=== PATIENT | male | born 1965 | race Caucasian/White ===

== ENCOUNTER 2024-04-10 12:10 | Emergency (ER) | payer MEDICAID, SELFPAY ==
[2024-04-10 12:11] VITALS: BMI 19.2
[2024-04-10 12:57] VITALS: BP 128/59; PULSE 66; RESP 19; TEMP 36.9; O2SAT 97; BMI 19.4
--- NOTE | 2024-04-10 13:04 | XR_ITS ---
Examination: CT abdomen with intravenous contrast CT pelvis with intravenous contrast 2-D coronal reconstructions 2-D sagittal reconstructions Comparison December 29, 2017 Date and time of exam:April 10, 2024 at 1518 hrs. Indications: Left groin pain and swelling beginning 2 months ago, history appendectomy hernia repair. CTDI: vol (mGy) 5.62 DLP: (mGycm) 267 Technique: Multiple axial sections of the abdomen and pelvis have been obtained. 64 slice high-resolution scanner used. 3 mm axial sections have been obtained, post intravenous injection 100 cc [id number] 2-D sagittal, coronal reconstructions obtained. Low dose protocols were performed. One or more of the following dose reduction techniques were used; automated exposure control, adjustment of the mA and/or KV according to patient size, use of iterative reconstruction technique. Findings: Multiple soft 2 to 3 mm bilateral pulmonary nodules in the lower lung zones Mildly dilated bronchi in the lower lobes No visualized liver or splenic lesion No gallstones No pancreatic mass Heavy abdominal aortic calcification No renal or ureteral calculi No bowel obstruction Appendix is not visualized No diverticulitis Prostate calcifications Transverse prostate dimension 4.1 cm Contracted urinary bladder Small fluid containing left inguinal hernia axial image 178, no bowel present in this hernia defect Moderate disc narrowing L4-L5 Impression: Multiple soft 2 to 3 mm bilateral pulmonary nodules in the lower lung zones, recommend PA lateral chest follow-up No renal or ureteral calculi, no hydronephrosis Appendix not visualized Small fluid containing left inguinal hernia, axial image 178, no bowel present in this hernia defect Given the patient's presentation, consider testicular sonography follow-up
--- NOTE | 2024-04-10 13:05 | PD.EDRME ---
Rapid Medical Screening Exam RME Arrival date/time: 04/10/24 12:10 58-year-old male presents to the emergency department complaining of left groin pain and swelling that is been ongoing for over a month but reports recently has doubled in size and increased pain. Chief Complaint: Skin/Abscess/Foreign Body Time Seen by Provider: 04/10/24 13:01 Vital signs: Vital Signs Temperature 98.5 F 04/10/24 12:57 Pulse Rate 66 04/10/24 12:57 Respiratory Rate 19 04/10/24 12:57 Blood Pressure 128/59 L 04/10/24 12:57 Pulse Oximetry (%) 97 04/10/24 12:57 Oxygen Delivery Method Room Air 04/10/24 12:57 Vital signs reviewed by provider: Yes
[2024-04-10 13:20] LABS: Collection Type, Urine Clean Catch; Squamous Epithelial Cell,Urine 0 /hpf (0-5)
[2024-04-10 13:31] LABS: Basophils % (Auto) 0 % (0-2.5); Eosinophils # (Auto) 0.2 Thou/mm3 (0.0-0.5); Eosinophils % (Auto) 2 % (0-10); Hematocrit 37.4 % (41.0-53.0); Hemoglobin 12.5 g/dL (13.5-16.0); Immature Granulocytes % (Auto) 1 % (0-0); Immature Granulocytes Auto 0.05 Thou/mm3 (0.00-0.00); Lymphocytes # (Auto) 2.3 Thou/mm3 (1.0-4.8); Lymphocytes % (Auto) 22 % (10-50); Mean Corpuscular HGB Conc 33.4 g/dl (31.0-37.0); Mean Corpuscular Volume 90 fL (80-100); Monocytes # (Auto) 0.9 Thou/mm3 (0.0-0.8); Monocytes % (Auto) 8 % (0-12); Neutrophils # (Auto) 7.1 Thou/mm3 (1.8-7.7); Neutrophils % (Auto) 68 % (37-80); Nucleated Red Blood Cell % 0 /100 WBC (0); Platelet Count 264 Thou/mm3 (140-440); RDW Standard Deviation 44.9 fL (35.1-43.9); Red Blood Count 4.17 Miln/mm3 (4.50-5.90); White Blood Count 10.6 Thou/mm3 (3.8-10.6)
[2024-04-10 13:36] LABS: Bilirubin,Urine Negative (Negative); Blood,Urine Negative (Negative); Clarity,Urine Clear (Clear/Hazy); Color,Urine Yellow (Lt Yel-Yel); Culture Indicated,Urine Not Indicated; Glucose, Urine Negative (Negative); Ketones,Urine Negative (Negative); Leukocyte Esterase,Urine Negative (Negative); Nitrite,Urine Negative (Negative); Protein,Urine 1+ (Neg - Trace); RBC,Urine 3 /hpf (0-3); Specific Gravity,Urine 1.028 (1.001-1.035); WBC,Urine < 1 /hpf (0-5)
[2024-04-10 13:44] LABS: Alanine Aminotransferase 17 U/L (10-49); Albumin, Serum 4.5 gm/dL (3.5-5.0); Albumin/Globulin Ratio 1.6 (1.2-2.2); Alkaline Phosphatase 91 U/L (46-116); Anion Gap 6 (7-16); Aspartate Amino Transferase 25 U/L (0-34); BUN/Creatinine Ratio 19 Ratio (12-20); Bilirubin,Total 0.4 mg/dL (0.3-1.2); Blood Urea Nitrogen 17 mg/dL (9-23); Calcium 9.1 mg/dL (8.3-10.6); Calcium (Corrected) 9.1 mg/dL (8.5-10.1); Carbon Dioxide 26.3 mMol/L (20.0-31.0); Chloride 104 mMol/L (98-107); Creatinine (Component) 0.9 mg/dL (0.6-1.3); Estimated Creatinine Clearance 83.6 mL/min (>60); Globulin 2.8 gm/dL (2.3-3.5); Glucose 86 mg/dL (74-106); Lipase 32 U/L (12-53); Osmolality,Calculated 272 (275-295); Potassium 4.2 mMol/L (3.4-5.1); Sodium 136 mMol/L (136-145); Total Protein 7.3 gm/dL (5.7-8.2); eGFR > 60 See Note
[2024-04-10] MEDS: KETOROLAC INJ 60 MG/2 ML VIAL 30 MG IM (13:45)
[2024-04-10 16:56] VITALS: BP 133/80; PULSE 60; RESP 18; TEMP 36.9; O2SAT 99
--- NOTE | 2024-04-10 16:57 | EDNOTE_ITS ---
ED Abdominal Pain RME/HPI General Chief Complaint: Skin/Abscess/Foreign Body Stated complaint: SORE LEFT GROIN FOR 2 MONTHS, WORSE x 2 DAYS Time seen by provider: 04/10/24 13:01 Arrival date/time: 04/10/24 12:10 58-year-old male presents to the emergency department complaining of left groin pain and swelling that is been ongoing for over 2 months but reports recently has doubled in size and increased pain. Patient [place] any fever, chills, nausea vomiting, diarrhea, urinary retention, or testicular pain. Source: patient Mode of arrival: ambulatory Limitations: no limitations RME / HPI RME / HPI narrative: 04/10/24 12:10 58-year-old male presents to the emergency department complaining of left groin pain and swelling that is been ongoing for over a month but reports recently has doubled in size and increased pain. Related Data Home Medications ?Medication ?Instructions ?Recorded ?Confirmed gabapentin 600 mg tablet 2 tab PO TID 12/29/17 02/24/18 hydrocodone 7.5 mg-acetaminophen 1 tab PO QID PRN Pain 12/29/17 02/24/18 325 mg tablet ([place]) levothyroxine 125 mcg tablet 125 mcg PO DAILY 02/24/18 02/24/18 Previous Rx's ?Medication ?Instructions ?Recorded lidocaine HCl 3 % topical swab 3 % topical QID PRN tooth pain #25 02/24/18 (LidoDose) mL baclofen 10 mg tablet 10 mg PO TID #20 tabs 11/02/22 doxycycline hyclate 100 mg capsule 100 mg PO BID #14 caps 11/02/22 meloxicam 7.5 mg tablet 7.5 mg PO QDAY #10 tabs 11/15/22 hydrocodone 10 mg-acetaminophen 1 tab PO BID PRN pain #10 tabs 12/04/22 325 mg tablet ibuprofen 600 mg tablet 600 mg PO Q8H PRN pain #20 tabs 04/10/24 Allergies Allergy/AdvReac Type Severity Reaction Status Date / Time codeine Allergy Severe HIVES AND Verified 04/10/24 12:13 SWELLING diazepam Allergy Severe VOMITING, Verified 04/10/24 12:13 SWELLING Penicillins Allergy Severe Swelling Verified 04/10/24 12:13 tea tree Allergy Severe Anaphylaxis Verified 04/10/24 12:13 Review of Systems Review of Systems Systems Reviewed: All systems reviewed, normal except as documented Constitutional Constitutional: Reports system reviewed and no additional complaints, except as documented, Denies body ache(s), Denies chills and Denies fever(s) Eyes Eyes: Reports system reviewed and no additional complaints, except as documented and Denies change in vision ENT Ears, Nose, Mouth, and Throat: Reports system reviewed and no additional complaints, except as documented, Denies disequilibrium, Denies dizziness, Denies sore throat and Denies vertigo Cardiovascular Cardiovascular: Reports system reviewed and no additional complaints, except as documented, Denies chest pain and Denies dyspnea Respiratory Respiratory: Reports system reviewed and no additional complaints, except as documented, Denies chest congestion, Denies cough and Denies dyspnea Gastrointestinal Gastrointestinal: Reports system reviewed and no additional complaints, except as documented, Denies abdominal pain, Denies nausea and Denies vomiting Genitourinary Genitourinary: Reports other (Groin pain) Musculoskeletal Musculoskeletal: Reports system reviewed and no additional complaints, except as documented, Denies abnormal gait and Denies arthralgias Integumentary/Breasts Skin/Breast: Reports system reviewed and no additional complaints, except as documented, Denies erythema, Denies rash and Denies wounds Neurologic Neurologic: Reports system reviewed and no additional complaints, except as documented, Denies abnormal gait, Denies disequilibrium, Denies dizziness and Denies vertigo Past Medical History Past Medical History NEUROLOGIC: Negative Seizures CARDIAC: Negative Cardiac Disorders or Congestive Heart Failure RESPIRATORY: Negative Chronic Obstructive Pulmonary Disease (COPD) or Asthma GENITOURINARY: Negative Renal Disease MUSCULOSKELETAL: Positive Musculoskeletal Disorders ENDOCRINE: Positive Hyperthyroidism; Negative Diabetes Mellitus Type 1 or Diabetes Mellitus Type 2 HEMATOLOGIC: Negative Sickle Cell Disease OTHER HISTORY: Negative Blood Transfusions, Blood Transfusion Reaction or Anesthesia Reactions Social History SMOKING STATUS: Heavy (> 1 pack/day) SUBSTANCE USE: does not use ED Exam General Limitations: Present no limitations General appearance: Present alert and in no apparent distress Head Head exam: Present atraumatic Eye Eye exam: Present normal appearance, PERRL and EOMI ENT ENT exam: Present normal exam, normal oropharynx and mucous membranes moist Neck Neck exam: Present normal inspection, full ROM and trachea midline Chest Chest inspection: Present normal inspection and symmetric chest wall rise Respiratory Respiratory exam: Present normal lung sounds bilaterally Cardiovascular Cardiovascular exam: Present regular rate, normal rhythm and normal heart sounds Abdominal Exam Abdominal exam: Present soft and normal bowel sounds Expanded Exam image: 2 1. Edema possible hernia no redness or signs of infection. Extremities Exam Extremities exam: Present normal inspection and full ROM Back Exam Back exam: Present normal inspection and full ROM Neurological Exam Neurological exam: Present alert, oriented X3 and CN II-XII intact Psychiatric Psychiatric exam: Present normal affect and normal mood Skin Skin exam: Present warm, dry, intact and normal color Course Quality Measures none Orders Category Date Time Status CT Screening NOW Care 04/10/24 13:[address] abdomen pelvis w con Stat Exams 04/10/24 13:04 Completed CBC Stat Lab 04/10/24 13:10 Completed CMP [Comprehensive Metabolic Panel] Stat Lab 04/10/24 13:10 Completed Lipase Stat Lab 04/10/24 13:10 Completed Urinalysis, C/S if Indicated Stat Lab 04/10/24 13:10 Completed Ketorolac Inj [Toradol Inj] Med 04/10/24 13:04 Discontinued 30 mg IM X1 ONE Vital Signs Vital signs: Vital Signs Temperature 98.5 F 04/10/24 12:57 Pulse Rate 66 04/10/24 12:57 Respiratory Rate 19 04/10/24 12:57 Blood Pressure 128/59 L 04/10/24 12:57 Pulse Oximetry (%) 97 04/10/24 12:57 Oxygen Delivery Method Room Air 04/10/24 12:57 97% room air within normal limits Abdominal Pain MDM MDM Narrative MDM Narrative:: 58-year-old male presents to the emergency department complaining of left groin pain and swelling that is been ongoing for over 2 months but reports recently has doubled in size and increased pain. Patient [place] any fever, chills, nausea vomiting, diarrhea, urinary retention, or testicular pain. Patient appears nontoxic and is hemodynamically stable. Patient declined to have ultrasound done the testicles reports does not have any pain and would like to be discharged and he can follow-up with his primary care provider. Patient given report of CT scan and also made aware of pulmonary nodules. Patient instructed to return immediately to emergency department for any worsening symptoms or as needed. CBC, CMP, and urinalysis were unremarkable. Patient data External records reviewed:: [facility] previous records Clinical information provided by:: patient Social determinants that could affect healthcare access:: none Patient has the following chronic illnesses:: See chart How is presenting disease/condition affected by chronic disease/condition?: u neffected by Evaluation data The following diagnostics were reviewed and interpreted by me:: lab results and radiology exam(s) Lab and/or radiology exams considered but not ordered:: Ordered Interpretation Summary: Interpreted by me Medications / Prescriptions Medications or Prescriptions considered but not ordered:: Ordered Medication administrations:: Medication Administration History Discontinued Medications Ketorolac Tromethamine (Ketorolac Inj 60 Mg/2 Ml Vial) 30 mg IM X1 ONE Stop: 04/10/24 13:05 Last Admin: 04/10/24 13:45 Dose: 30 mg Documented By: Given Consultations Consultation(s) initiated? (list below): No Diagnosis Differential diagnosis abdominal pain: abdominal pain, acute appendicitis, constipation, diverticulitis, endometriosis, gastroenteritis, pancreatitis, small bowel obstruction and other (Testicular torsion) Most likely diagnosis given after review of the tests above:: Left inguinal hernia Admission Indicated Admission indicated?: not indicated Admission Request Was there a request for admission?: No Disposition Plan Disposition Plan: Discharge Discharge Attestation Discharge Attestation: The patient and all family members were given an opportunity to ask questions and understood the discharge instructions. Discharge instructions specifically effects, indications for sooner follow up or return to the emergency department, and the expected course of current diagnosis. Patient condition: Stable Discharge Plan Plan Patient Disposition: HOME (Self Care) Disposition Comment: Stable Prescriptions/Referrals Prescriptions/Med Rec: New ibuprofen 600 mg tablet 600 mg PO Q8H PRN (Reason: pain) Qty: 20 0RF No Action gabapentin 600 mg Tablet 2 tab PO TID hydrocodone-acetaminophen [[place]] 7.5-325 mg Tablet 1 tab PO QID PRN (Reason: Pain) levothyroxine 125 mcg Tablet 125 mcg PO DAILY lidocaine HCl [LidoDose] 3 % swab 3 % TOPICAL QID PRN (Reason: tooth pain) Qty: 25 0RF hydrocodone-acetaminophen 10-325 mg tablet 1 tab PO BID MDD 2 tabs PRN (Reason: pain) Qty: 10 0RF doxycycline hyclate 100 mg capsule 100 mg PO BID Qty: 14 0RF baclofen 10 mg tablet 10 mg PO TID Qty: 20 0RF meloxicam 7.5 mg tablet 7.5 mg PO QDAY Qty: 10 0RF Referrals: Anita Koroma PA-C [Primary Care Provider] - In 1 week Problem List Clinical Impression: Hernia, inguinal, left Patient/Caregiver Discharge Instructions Discharge Activity: activity as tolerated Education Materials: What Is a Hernia?, ED Hernia (Adult) Additional Instructions: Take ibuprofen as needed for pain. Follow-up with primary care provider and request referral to general surgeon if symptoms persist. CT scan report was given make sure to ask for testicular ultrasound follow-up and repeat chest x-ray for pulmonary nodules. Return to emergency department for any worsening symptoms or as needed. Print Language: Persian Stand Alone Forms: Maggie Award Info., Patient Portal Info Letter PA/BASIN FINISH OPERATOR TIG WELDER Supervising Physician PA/BASIN FINISH OPERATOR TIG WELDER Supervising Physician: Dr. Cifuentes
== END 2024-04-10 17:09 | disposition home or self-care (01) ==
PROVIDERS: Emergency Provider Emergency Medicine; PCP Physician Assistant
DX: K40.90 Unilateral inguinal hernia, without obstruction or gangrene, not specified as recurrent (principal); R91.8 Other nonspecific abnormal finding of lung field
CPT/HCPCS: 36415; 74177; 80053; 81001; 83690; 85025; 96372; 99285; A4649; J1885; Q9967

== ENCOUNTER 2024-12-12 20:33 | Emergency (ER) | payer MEDICAID, SELFPAY ==
[2024-12-12 20:34] VITALS: BP 166/85; PULSE 99; RESP 18; TEMP 39.8; O2SAT 95
[2024-12-12 20:41] VITALS: PULSE 103; RESP 20; O2SAT 96
[2024-12-12 20:46] VITALS: BMI 19.2
--- NOTE | 2024-12-12 20:49 | EKG_ITS ---
[facility] Test Date: 2024-12-12 Pat Name: BAHMAN GUERRERO Department: Room: - Gender: Male Solution Design Engineer: : [id number] Requested By: Matty De La Cruz Order Number: [id number] Reading MD: Matty De La Cruz Measurements Intervals [place] Rate: 82 P: 74 VA: 145 QRS: 79 QRSD: 98 T: 67 QT: 343 QTc: 401 Interpretive Statements SINUS RHYTHM Compared to ECG 01/06/2023 17:11:18 No significant changes /store/S0/[id number]
--- NOTE | 2024-12-12 20:49 | XR_ITS ---
Examination: AP chest single view Technique one AP portable semiupright chest single view Date and time: December 12, 2024, 2052 hrs. Indications: Shortness of breath chest pain beginning 2 days ago. Findings: Normal heart size. Mild prominence pulmonary vasculature. No lobar pneumonia or pulmonary edema. Mild osteopenia. Impression: Mild prominence pulmonary vasculature
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
[2024-12-12 21:23] VITALS: TEMP 39.8
[2024-12-12] MEDS: ACETAMINOPHEN 325 MG TABLET 650 MG PO (21:23)
[2024-12-12] MEDS: SODIUM CHLORIDE 0.9% 1000 ML 1,000 ML 999 ML IV (21:23)
[2024-12-12] MEDS: AZITHROMYCIN 250 MG TABLET 500 MG PO (21:24)
[2024-12-12 21:30] LABS: Lactate (Lactic Acid) 1.9 mMol/L (0.4-2.0)
[2024-12-12 21:33] LABS: Basophils # (Auto) 0.0 Thou/mm3 (0.0-0.2); Basophils % (Auto) 1 % (0-2.5); Eosinophils # (Auto) 0.0 Thou/mm3 (0.0-0.5); Eosinophils % (Auto) 1 % (0-10); Hematocrit 37.0 % (41.0-53.0); Hemoglobin 12.9 g/dL (13.5-16.0); Immature Granulocytes Auto 0.02 Thou/mm3 (0.00-0.00); Lymphocytes # (Auto) 0.7 Thou/mm3 (1.0-4.8); Lymphocytes % (Auto) 9 % (10-50); Mean Corpuscular HGB Conc 34.9 g/dl (31.0-37.0); Mean Corpuscular Hemoglobin 31.7 pg (25.0-35.0); Mean Corpuscular Volume 91 fL (80-100); Monocytes # (Auto) 0.1 Thou/mm3 (0.0-0.8); Monocytes % (Auto) 1 % (0-12); Neutrophils # (Auto) 7.5 Thou/mm3 (1.8-7.7); Neutrophils % (Auto) 89 % (37-80); Nucleated Red Blood Cell # 0.00 Thou/mm3 (0.00-0.00); Nucleated Red Blood Cell % 0 /100 WBC (0); Platelet Count 205 Thou/mm3 (140-440); RDW Standard Deviation 45.2 fL (35.1-43.9); Red Blood Count 4.07 Miln/mm3 (4.50-5.90); White Blood Count 8.4 Thou/mm3 (3.8-10.6)
[2024-12-12 21:33] LABS: Collection Type, Urine Voided; Squamous Epithelial Cell,Urine 0 /hpf (0-5)
[2024-12-12] MEDS: cefTRIAXone/D5w 1gm IV premix 1 GM/50 ML BAG IV (21:39)
[2024-12-12 21:58] LABS: Alanine Aminotransferase 10 U/L (10-49); Albumin, Serum 3.9 gm/dL (3.4-4.8); Albumin/Globulin Ratio 1.8 (1.2-2.2); Alkaline Phosphatase 79 U/L (46-116); Anion Gap 10 (7-16); Aspartate Amino Transferase 20 U/L (0-34); BUN/Creatinine Ratio 16 Ratio (12-20); Bilirubin,Total 0.5 mg/dL (0.3-1.2); Blood Urea Nitrogen 18 mg/dL (9-23); Calcium 9.4 mg/dL (8.3-10.6); Calcium (Corrected) 9.5 mg/dL (8.5-10.1); Carbon Dioxide 23.5 mMol/L (20.0-31.0); Chloride 107 mMol/L (98-107); Creatinine (Component) 1.1 mg/dL (0.6-1.3); Estimated Creatinine Clearance 68.7 mL/min (>60); Globulin 2.2 gm/dL (2.3-3.5); Glucose 133 mg/dL (74-106); Osmolality,Calculated 283 (275-295); Potassium 3.4 mMol/L (3.4-5.1); Sodium 140 mMol/L (136-145); Total Protein 6.1 gm/dL (5.7-8.2); Troponin I < 0.020 ng/mL (0.0-0.045); eGFR > 60 See Note
[2024-12-12 22:13] LABS: Bilirubin,Urine Negative (Negative); Blood,Urine Trace (Negative); Clarity,Urine Clear (Clear/Hazy); Color,Urine Yellow (Lt Yel-Yel); Glucose, Urine Negative (Negative); Ketones,Urine Trace (Negative); Leukocyte Esterase,Urine Negative (Negative); Nitrite,Urine Negative (Negative); PH,Urine 6.0 (5.0-7.0); Protein,Urine 1+ (Neg - Trace); RBC,Urine 3 /hpf (0-3); Specific Gravity,Urine 1.028 (1.001-1.035); Urobilinogen,Urine Negative mg/dL (0.0-1.0); WBC,Urine 2 /hpf (0-5)
[2024-12-12 22:32] VITALS: TEMP 37.9
[2024-12-12 22:34] VITALS: BP 119/61; PULSE 73; RESP 18; TEMP 37.9; O2SAT 96
[2024-12-12 23:46] VITALS: BP 112/58; PULSE 70; RESP 16; TEMP 37.2; O2SAT 97
== END 2024-12-12 23:50 | disposition home or self-care (01) ==
PROVIDERS: Emergency Provider Emergency Medicine
DX: B34.9 Viral infection, unspecified (principal)
CPT/HCPCS: 36415; 71045; 80053; 81001; 83605; 84484; 85025; 87040; 87077; 87186; 87400; 87502; 87811; 93005; 96365; 99283; J0696; J7030; A9270

== ENCOUNTER 2025-01-07 07:55 | Day surgery (SDC) | payer MEDICAID, SELFPAY ==
[2025-01-05 10:20] VITALS: BMI 19.0
[2025-01-05 10:56] LABS: Basophils # (Auto) 0.1 Thou/mm3 (0.0-0.2); Basophils % (Auto) 1 % (0-2.5); Eosinophils # (Auto) 0.2 Thou/mm3 (0.0-0.5); Eosinophils % (Auto) 3 % (0-10); Hematocrit 37.7 % (41.0-53.0); Hemoglobin 12.9 g/dL (13.5-16.0); Immature Granulocytes Auto 0.02 Thou/mm3 (0.00-0.00); Lymphocytes # (Auto) 2.0 Thou/mm3 (1.0-4.8); Lymphocytes % (Auto) 26 % (10-50); Mean Corpuscular HGB Conc 34.2 g/dl (31.0-37.0); Mean Corpuscular Hemoglobin 31.3 pg (25.0-35.0); Mean Corpuscular Volume 92 fL (80-100); Monocytes # (Auto) 0.5 Thou/mm3 (0.0-0.8); Monocytes % (Auto) 6 % (0-12); Neutrophils # (Auto) 5.0 Thou/mm3 (1.8-7.7); Neutrophils % (Auto) 64 % (37-80); Nucleated Red Blood Cell # 0.00 Thou/mm3 (0.00-0.00); Nucleated Red Blood Cell % 0 /100 WBC (0); Platelet Count 308 Thou/mm3 (140-440); RDW Standard Deviation 47.8 fL (35.1-43.9); Red Blood Count 4.12 Miln/mm3 (4.50-5.90); White Blood Count 7.7 Thou/mm3 (3.8-10.6)
[2025-01-05 11:06] LABS: INR 1.0 (0.9-1.3); Partial Thromboplastin Time 27.6 Seconds (22.0-36.0); Prothrombin Time 11.1 Seconds (9.0-12.2)
[2025-01-05 11:11] LABS: Alanine Aminotransferase 11 U/L (10-49); Albumin, Serum 4.4 gm/dL (3.4-4.8); Albumin/Globulin Ratio 1.6 (1.2-2.2); Alkaline Phosphatase 77 U/L (46-116); Anion Gap 3 (7-16); Aspartate Amino Transferase 21 U/L (0-34); BUN/Creatinine Ratio 17 Ratio (12-20); Bilirubin,Total 0.4 mg/dL (0.3-1.2); Blood Urea Nitrogen 15 mg/dL (9-23); Calcium 9.5 mg/dL (8.3-10.6); Calcium (Corrected) 9.5 mg/dL (8.5-10.1); Carbon Dioxide 26.7 mMol/L (20.0-31.0); Chloride 109 mMol/L (98-107); Creatinine (Component) 0.9 mg/dL (0.6-1.3); Estimated Creatinine Clearance 82.9 mL/min (>60); Globulin 2.7 gm/dL (2.3-3.5); Glucose 91 mg/dL (74-106); Osmolality,Calculated 278 (275-295); Potassium 3.9 mMol/L (3.4-5.1); Sodium 139 mMol/L (136-145); Total Protein 7.1 gm/dL (5.7-8.2); eGFR > 60 See Note
[2025-01-07] VITALS (9 sets, daily range): BP systolic 131–165; BP diastolic 61–87; PULSE 54–88; RESP 12–19; TEMP 36.6–36.8; O2SAT 95–100; BMI 17.9
--- NOTE | 2025-01-07 08:43 | SUR.PREOP ---
Patient expressed gratitude for prayer before their procedure.
--- NOTE | 2025-01-07 12:10 | SUR.PHASEI ---
1210 Patient arrived to recovery resting comfortably in [facility], on oxygen 8L via oxy mask with an nasoairway in place, breathing unlabored, vital signs stable, dressing intact to left groin; sutures, adatptic, gauze, medipore tape, no bleeding noted, report received from Cecilio CHILD and Xi
--- NOTE | 2025-01-07 12:47 | ESOP_ITS ---
Date of Procedure 01/07/25 Pre Op Diagnosis Symptomatic left inguinal hernia Post Op Diagnosis Same, indirect in type Procedure Repair of the left inguinal hernia with high ligation of the sac and placement of a 2 x 4 Marlex mesh on the floor of the inguinal canal Findings Patient had indirect hernia manifesting through the internal ring. The floor of the inguinal canal was strong despite his age Procedure Description After the patient was given endotracheal anesthesia is lower abdomen was prepped with chloreprep solution and draped. Standard left groin incision was made in the external oblique was reached. Incision was made over the external oblique and the patient was found to have a large sac next to the cord structures. The cord structures were encircled around a [place] drain and the sac was easily . Patient had considerable strong adhesions between the sac on the cord structures and I had difficult time the sac from the cord structures. After this was achieved I realized that the patient had narrow neck at the internal ring. Placed I suture ligated this with 2-0 chromic and then divided. Another 2-0 chromic suture ligation was used to prevent any slippage of the previous suture. Then I palpated the floor of the inguinal canal which appeared to be strong. I placed a 2 x 4 Marlex mesh and attached it medially to the pubic tubercle and laterally it was tucked underneath the external oblique after crossing the cord structures. I placed one stitch of Prolene lateral to the cord structures. Then external oblique was closed with running 2-0 Vicryl and subcutaneous tissues was approximated with 30 plain I injected half percent Marcaine with epinephrine for analgesia and the skin was closed with 4-0 Monocryl. Dressing was applied with Adaptic and 4 x 4 and the patient tolerated the procedure well and left operating room in stable condition. Anesthesia GETA Implants 2 x 4 Marlex mesh on the floor Pathology / specimen None Estimated Blood Loss 20 Surgeon Rianna Taylor MD Surgical Staff Operation Date: 01/07/25 10:30 Case Staff DATA ENTRY ANALYST: Urbano Tian
--- NOTE | 2025-01-07 12:50 | SUR.PHASEII ---
1250 Report given to Shea Joya RN, patient sitting up in bed, awake and alert, breathing unlabored, vital signs stable, denies pain, dressing intact; no bleeding noted, drinking water; tolerating well, denies nausea.
--- NOTE | 2025-01-07 13:20 | SUR.PHASEII ---
1250: pt awake, alert, able to follow commands, breathing unlabored, dressing to left groin clean, dry, and intact, VS stable, report from Shea Jenkins RN 1320: pt awake, alert, able to follow commands, breathing unlabored, dressing to left groin clean, dry, and intact, VS stable, discharge instructions given to pt and Ramon-all questions answered, pt able to dress self and ambulate to wheelchair with steady gait, pt discharged via wheelchair with all belongings and copies of discharge paperwork.
== END 2025-01-07 13:20 | disposition home or self-care (01) ==
PROVIDERS: Referring Provider Surgery; Visit Provider Surgery
PROC: (CPT 49505; principal; 2025-01-07 10:15)
DX: K40.90 Unilateral inguinal hernia, without obstruction or gangrene, not specified as recurrent (principal)
CPT/HCPCS: 49505; 36415; 80053; 85025; 85610; 85730; A4649; C1781; J0131; J1171; J1885; J2250; J2371; J2704; J3010; J3490